=== PATIENT | female | born 1955 | race Hispanic/Latino ===

== ENCOUNTER → 2020-05-01 | Outpatient (CLI) | payer BC | LOC: MAMMO 09:19 | PROVIDERS: ATTEND Internal Medicine | DX: Z12.31 Encounter for screening mammogram for malignant neoplasm of breast (principal) | CPT/HCPCS: 77067 ==

== ENCOUNTER → 2022-02-04 | Outpatient (CLI) | payer MEDICARE | LOC: DX 15:34 | PROVIDERS: ATTEND Internal Medicine | DX: M85.88 Other specified disorders of bone density and structure, other site (principal); M19.012 Primary osteoarthritis, left shoulder | CPT/HCPCS: 77080 ==

== ENCOUNTER → 2022-08-04 | Outpatient (CLI) | payer MEDICARE | LOC: RAD 08:50 | PROVIDERS: ATTEND Internal Medicine | DX: J41.0 Simple chronic bronchitis (principal) | CPT/HCPCS: 71046 ==

== ENCOUNTER → 2023-10-28 | Outpatient (REF) | payer MEDICARE | LOC: MAMMO 11:48 | PROVIDERS: ATTEND Internal Medicine | DX: Z12.31 Encounter for screening mammogram for malignant neoplasm of breast (principal); M17.12 Unilateral primary osteoarthritis, left knee | CPT/HCPCS: 77067 ==

== ENCOUNTER 2024-09-15 09:00 | Outpatient (RCR) | payer MEDICARE | END 2024-09-19 | LOC: PT 09:00 | PROVIDERS: ATTEND Specialist | DX: M17.12 Unilateral primary osteoarthritis, left knee (principal) ==

== ENCOUNTER 2024-10-06 09:00 | Outpatient (RCR) | payer MEDICARE | END 2024-10-20 | LOC: PT 09:00 | PROVIDERS: ATTEND Specialist | DX: M17.12 Unilateral primary osteoarthritis, left knee (principal) ==

== ENCOUNTER 2024-11-10 14:55 | Outpatient (RCR) | payer MEDICARE | END 2024-11-20 | LOC: PT 14:55 | PROVIDERS: ATTEND Specialist | DX: M17.12 Unilateral primary osteoarthritis, left knee (principal) ==

== ENCOUNTER 2024-12-13 15:00 | Outpatient (RCR) | payer MEDICARE | END 2024-12-20 | LOC: PT 15:00 | PROVIDERS: ATTEND Specialist | DX: M17.12 Unilateral primary osteoarthritis, left knee (principal) ==

== ENCOUNTER → 2024-12-21 | Outpatient (REF) | payer MEDICARE | LOC: MAMMO 08:55 | PROVIDERS: ATTEND Nurse Practitioner | DX: Z12.31 Encounter for screening mammogram for malignant neoplasm of breast (principal) | CPT/HCPCS: 77067 ==